=== PATIENT | female | born 1950 | race Caucasian/White ===

== ENCOUNTER → 2017-08-10 09:01 | Outpatient (CLI) | payer MEDICARE, OTHER, SELFPAY ==
--- NOTE | 2017-08-10 09:05 | RAD_ITS ---
STUDY: X-RAY - LEFT KNEE REASON FOR EXAM: Female, 67 years old. Knee pain. TECHNIQUE: 4 view(s) of the knee. COMPARISON: None. FINDINGS: Normal visualized distal femur. Normal visualized proximal tibia and fibula. Normal proximal tibiofibular articulation. There is mild degenerative arthrosis of the medial femorotibial compartment. Normal lateral femorotibial compartment. Normal patellofemoral articulation. Tiny joint effusion. RAD/Knee 4 or More Views IMPRESSION: Degenerative arthrosis. Tiny joint effusion. Electronically Signed: López Bhatti MD at 15:34 EDT Tel [phone], Service support ,
== END ==
PROVIDERS: Family Provider Family Medicine; PCP Family Medicine; Visit Provider Orthopaedic Surgery
DX: M25.562 Pain in left knee (principal)
CPT/HCPCS: 73564

== ENCOUNTER 2017-10-04 08:30 | Outpatient (RCR) | payer MEDICARE, OTHER, SELFPAY ==
--- NOTE | 2017-09-13 17:05 | HP.PTEVAL_ITS ---
Patient's Visit Information MADELINE BUCKLEY is a 67 year old F referred to Physical Therapy by Luc Lantigua DO with a diagnosis of L knee PF Pain. Date of Evaluation: 09/13/17 Physical Therapist: Claire Mehta - Visit Plan Frequency: 2x /Week Duration: 6 Weeks Plan: 2X/ week for 4-6 weeks for L knee AROM, PROM, decrease in swelling via movement and modalities, L hip and knee strength, gait training, stretching with HEP and modalities PRN - Subjective Subjective: Pt reports that Her L knee is bothering her. The cortizone shot that Dr Lantigua gave her did nothing. She walks a lot at the [employer]. She thinks that she overdid it. She wears tennis shoes most of the time and has orthotics. In Feb she had surgery on L knee due to a fall down on the L knee. 2 weeks after the fall she got up i the morning and her knee was swollen and red and she got to the Dr the next day and she thought the knee was infected and was on antibiotic and by the next Tuesday they called her to get an IV antibiotic due to MRSA staff infection and cut her knee open and drained it and waited 24 hours and they took the bursea out. Pt felt great after the surgery so not sure it is related to this knee injurty. She had an x-ray with a little bit of arthritis but not much. Stairs: She has to descend one step at a time. IF she goes up stairs she can reciprically go up stairs. She can not go down to the floor to get stuff off the floor. People are saying she is limping. She ices it everyday. She wears a brace on her knee with 2 velcro straps. If she lyes on R side she is ok or if she lays on back with pillow under her knee. Pain seems to be worse on the medial side o fthe L knee. - Pain L knee pain Pain Intensity (Out of 10): 7 - Objective Gait: walks with decreased stance time on the L, WBOS, walks with decrease L knee extension. LE MMT: B hip flex 4/5, L knee ext 4-/5 and R 4/5, B knee flex 4/5, B hip abd 4/5. L knee AROM -2 degrees from full extension and 77 degrees L knee flexion. R knee AROM 0 degrees to 122 degrees L knee flexion. After 10 heel slides pt was able to get knee to 100 degrees L knee flexion. Tender along the medial side of the patella on the L knee. B tightness in gastroc present - Goals Goal 1:: I HEP Goal Time Frame: 4-6 Weeks Goal 2:: Increase L knee AROM 0-120 degrees flexion Goal Time Frame: 4-6 Weeks Goal 3:: Be able to walk with increased L knee extension and increased stance time on the L knee Goal Time Frame: 4-6 Weeks Goal 4:: Increase L knee ext strength to 4/5 Goal Time Frame: 4-6 Weeks - Rehabilitation Potential Rehabilitation Potential: Good - Anticipated Interventions Patient/Client Instruction: Educate patient on: Condition, Plan of Care For the Purpose of:: To decrease pain, To decrease swelling/inflammation, To increase ROM, To improve nutrient delivery to tissue, To improve muscle performance and motor function, To improve ability to perform ADL's, To increase tolerance to activity/condition/position, To improve performance and independence with ADL's, To improve ability of physical actions for home/ community/work/leisure, To improve gait and locomotor functions, To improve health of tissue, To decrease soft tissue restriction, To increase flexibility/ ROM Therapeutic Exercise to Include: Strength training, Balance training, Flexibilty training, Gait and locomotor training, Passive ROM, Active ROM For the Purpose of:: To decrease pain, To decrease swelling/inflammation, To increase ROM, To improve nutrient delivery to tissue, To improve muscle performance and motor function, To improve ability to perform ADL's, To increase tolerance to activity/condition/position, To improve gait and locomotor functions, To improve health of tissue, To decrease soft tissue restriction, To increase flexibility/ROM Functional Training to Include: Gait training For the Purpose of:: To improve gait and locomotor functions, To improve safety with gait IF ES: Yes Cryotherapy (ice pack, ice massage): Yes Ultrasound (thermal/non thermal): Yes For the Purpose of:: To decrease pain, To decrease swelling/inflammation, To increase ROM, To improve nutrient delivery to tissue Thank you for the opportunity to evaluate your patient. For Medicare and Medicare HMO plans, please review the plan of care and approve it. It will need to be FAXED BACK to us at [phone] for Medicare purposes. Please let me know if there are questions or concerns regarding this plan of care. Physician Signature: Date:
--- NOTE | 2017-10-04 08:59 | HP.PTDCSUM ---
HP - PT D/C Summary It has been my pleasure to treat MADELINE BUCKLEY under orders from Luc Lantigua DO, for the diagnosis of L knee PF Pain for a total of 7 visit(s). Discharge Date: 10/04/17 Please see the following information for a summary of their discharge status. - Subjective Subjective: Pt reports that she is no better. She reports that she can function with tylenol but that is irritating her stomach. - Pain L knee pain Pain Intensity (Out of 10): 5 - Overall Improvement % Improvement: 20 - Objective Objective/Function: L knee AROM -1 degree to 100 degrees L knee flexion. L knee strength: L knee flex 4/5 and L knee ext 4/5. gait: Walks with increase wobble, decreased stance time on the L, def antalgic gait. - Goals Goal 1:: I HEP Goal Progress: Goal Met Goal 2:: Increase L knee AROM 0-120 degrees flexion Goal Progress: Progressing Goal 3:: Be able to walk with increased L knee extension and increased stance time on the L knee Goal Progress: Not Progressing Goal 4:: Increase L knee ext strength to 4/5 Goal Progress: Goal Met - Plan Plan: DC PT to be re-evaluated by Dr. Lanitgua - D/C Information Discharge Comments: DC PT back to Dr Lantigua for physician resassessment. If there are questions or concerns regarding this patient's physical therapy, please feel free to call me at [phone]. Thank you for the referral of this patient. Sincerely, Claire Mehta
== END 2017-10-04 19:00 | disposition home or self-care (01) ==
LOC: PT 08:30
PROVIDERS: Family Provider Family Medicine; PCP Family Medicine; Visit Provider Orthopaedic Surgery
DX: M22.2X2 Patellofemoral disorders, left knee (principal)
CPT/HCPCS: 97014; 97035; 97110; 97161; 97530; G0283

== ENCOUNTER → 2017-10-13 12:04 | Outpatient (CLI) | payer MEDICARE, OTHER, SELFPAY ==
--- NOTE | 2017-10-13 12:07 | MRI_ITS ---
STUDY: MRI LEFT KNEE REASON FOR EXAM: Left knee pain for 4 months, infected bursa removed last February. TECHNIQUE: Standardized fat and water weighted pulse sequences were obtained in all 3 orthogonal planes. COMPARISON: Radiographs 08/10/2017. FINDINGS: There is tear/degeneration of the posterior horn and posterior body of the medial meniscus (proton-density sagittal images 30-32; proton density coronal images 16, 17). There is peripheral subluxation of the medial meniscus. There is arthrosis of the medial femorotibial compartment with partial-thickness chondral loss (T2 sagittal image 16). There is a subchondral stress fracture of the medial tibial plateau (T2 coronal images 14-19) with bone edema extending across the midline into the lateral tibial plateau. There is mild periligamentous inflammation of the medial collateral ligament (T2 coronal image 17). Normal distal semimembranosus, gracilis and semitendinosus tendons. Normal lateral meniscus. Normal hyaline cartilage of the lateral femorotibial compartment. Normal proximal tibiofibular articulation. Normal lateral collateral (fibular) ligament. Normal popliteus tendon. Normal biceps femoris tendon. Normal anterior cruciate ligament (ACL). Normal posterior cruciate ligament (PCL). There is lateral subluxation of the patella (T2 axial image 14). There is intermediate grade chondromalacia of the medial patellar facet (T2 axial image 12). Normal medial and lateral patellar retinaculum. Normal quadriceps tendon. Normal patellar tendon. Normal Hoffa's fat pad. There is a fweuo-hn-kconfooc sized joint effusion. There is a thin medial patellar plica. There is mild edema in the anterior subcutis adipose space. The otherwise visualized osseous structures are unremarkable. MRI/Lower Ext Joint Only (Routine) IMPRESSION: Tear/degeneration of the medial meniscus. Subchondral stress fracture of the medial tibial plateau. Arthrosis of the medial femorotibial compartment. Chondromalacia patellae. Mild periligamentous inflammation of the medial collateral ligament. Lateral subluxation of the patella. Joint effusion. Electronically Signed: Mani Carcamo MD at 13:31 EDT Tel , Service support ,
== END ==
PROVIDERS: Family Provider Family Medicine; PCP Family Medicine; Visit Provider Orthopaedic Surgery
DX: M23.92 Unspecified internal derangement of left knee (principal)
CPT/HCPCS: 73721

== ENCOUNTER → 2017-11-24 09:33 | Outpatient (CLI) | payer MEDICARE, OTHER, SELFPAY ==
[2017-11-24 10:09] LABS: RBC /Synovial Fluid 0.028 10^6/uL (0); Synovial Fld Mononuclear WBC % 81.3 %; Synovial Fld Polynuclear WBC # 0.068 10^3/ul; Synovial Fld Polynuclear WBC % 18.7 %
[2017-11-24 14:27] LABS: Lymph 28 %; Monocyte /Synovial Fluid 25 %; Neutrophil 19 % (0-25); Other Cell /Synovial Fluid 28 %
[2017-11-24 14:28] LABS: AUTO B FLUID DILUENT BKGD CT WBC <0.1 RBC <0.01 (W<.1,R<.01)
[2017-11-24 14:29] LABS: Appearance /Synovial Fluid Cloudy (CLEAR); Color / Synovial Fluid Red (Pale Yellow); Source / Synovial Fluid LEFT KNEE
[2017-11-24 14:30] LABS: Body Fluid QC Type(s) BFQ2; Synovial Fld Mononuclear WBC # 0.295 10^3/ul
[2017-11-28 14:20] LABS: Pathologist Comment Reviewed
== END ==
PROVIDERS: Family Provider Family Medicine; PCP Family Medicine; Visit Provider Specialist
DX: M25.462 Effusion, left knee (principal)
CPT/HCPCS: 87015; 87070; 87075; 87101; 87116; 87205; 87206; 89050; 89051

== ENCOUNTER → 2017-11-30 08:36 | Outpatient (CLI) | payer MEDICARE, OTHER, SELFPAY ==
[2017-11-30 10:23] LABS: Glucose 107 mg/dL (74-106)
== END ==
PROVIDERS: Family Provider Family Medicine; PCP Family Medicine; Visit Provider Physician Assistant
DX: L92.0 Granuloma annulare (principal); L82.1 Other seborrheic keratosis; L81.4 Other melanin hyperpigmentation; D18.01 Hemangioma of skin and subcutaneous tissue; D22.5 Melanocytic nevi of trunk; D48.5 Neoplasm of uncertain behavior of skin; L80 Vitiligo; L90.5 Scar conditions and fibrosis of skin; R23.3 Spontaneous ecchymoses; L60.3 Nail dystrophy; L40.0 Psoriasis vulgaris; L65.9 Nonscarring hair loss, unspecified; Z71.89 Other specified counseling
CPT/HCPCS: 36415; 82947

== ENCOUNTER 2017-12-20 13:02 | Observation (INO) | payer MEDICARE, OTHER, SELFPAY ==
[2017-12-02 13:23] VITALS: BP 135/70; PULSE 76; RESP 17; TEMP 36.6; O2SAT 98; BMI 36.8
--- NOTE | 2017-12-02 13:54 | SDCEKG_ITS ---
Test Reason : Blood Pressure : / mmHG Vent. Rate : 074 BPM Atrial Rate : 074 BPM P-R Int : 176 ms QRS Dur : 090 ms QT Int : 404 ms P-R-T Axes : 036 -33 014 degrees QTc Int : 448 ms Normal sinus rhythm Left axis deviation Minimal voltage criteria for LVH, may be normal variant Abnormal ECG Confirmed by JAD LOPEZ, CRISPIN ([id number]), general expeditor MELITON LOO ([id number]) on 12/06/2017 2:58:24 PM Referred By: Jeremías Braden Confirmed By:CRISPIN STREET MD
[2017-12-02 14:24] LABS: Absolute Lymphocyte Count 2.02 X10^3/ul (0.83-4.51); Absolute Neutrophil Count 2.9 X10^3/uL (2.0-7.7); Basophil# 0.02 X10^3/uL; Basophil% 0.4 % (0-1); Eosinophil# 0.12 X10^3/uL; Eosinophils% 2.1 % (0-5); Hematocrit 39.4 % (37-47); Hemoglobin 13.1 g/dl (12.0-15.0); Lymphocyte # 2.02 X10^3/ul (4.0); Lymphocyte % 35.8 % (19-41); Mean Corp Hgb Conc 33.2 g/gl (32-36); Mean Corpuscular Volume 93.4 fL (81-99); Mean Platelet Vol. 8.3 fl (6.2-12.0); Monocyte# 0.59 X10^3/uL; Monocyte% 10.4 % (0-10); Neutrophil % 51.3 % (47-70); Platelet Count 232 K/mm3 (150-450); RBC Distribution Width CV 12.6 % (11.6-14.6); Red Blood Count 4.22 M/mm3 (4.2-5.4); White Blood Count 5.7 K/mm3 (4.4-11.0)
[2017-12-02 14:27] LABS: POSITIVE COUNT NO; POSITIVE DIFFERENTIAL NO; POSITIVE MORPHOLOGY NO
[2017-12-02 14:37] LABS: Anion Gap 7 (5-15); BUN 17 mg/dL (7-18); BUN/Creat Ratio 18.9 RATIO (10-20); Chloride 106 mmol/L (98-107); EST Glomerular Filtration Rate 67 mL/min (>60); Est Glom Filt Rate - Afr Amer 81 mL/min (>60); Estimated Creatinine Clearance 56.08 ml/min; Glucose 133 mg/dL (74-106); Potassium 4.1 mmol/L (3.5-5.1); Sodium Level 141 mmol/L (136-145)
--- NOTE | 2017-12-04 07:42 | HP.PCM_ITS ---
History and Physical DATE OF SURGERY: 12/20/2017 SCHEDULED PROCEDURE: Unicompartmental left knee arthroplasty HISTORY OF PRESENT ILLNESS: This is a 67-year-old female who has been having ongoing pain in the left knee. Patient states she fell in January 2017 on the left knee. She was treated for MRSA infection and had bursectomy in February [address] Lantigua. Patient had IV antibiotics in the hospital followed by oral antibiotics. Patient currently states her pain can reach as high as a 9 out of 10. Her pain is intermittent, aching, sharp, and sore. She has increased pain going up and down stairs, walking any amount of distance, and sitting for extended periods of time. She has difficult time with activities of daily living including getting dressed and housework. Patient has tripped and stumbled secondary to her knee pain. She feels unsafe going up and down stairs. Patient has tried rest, ice, heat with minimal relief in symptoms. She has tried corticosteroid injection, physical therapy, home exercises, and healthcare specialist with no relief in symptoms. She has tried oral medications consisting of Tylenol with minimal relief. Patient has been using a brace as well as orthotics with no relief in symptoms. Patient also has undergone an MRI of the left knee. After failing conservative measures and discussing all treatment options with Dr. Jeremías Braden, the patient would like to proceed with a left unicompartmental total knee arthroplasty. Patient currently denies any chest pain, shortness of breath, fevers chills. We are obtaining surgical clearance from patient's primary care physician. Patient has medical history pertinent for sleep apnea. REVIEW OF SYSTEMS: ROS: Const: Denies change in appetite, fever and weight change. CV: Denies chest pain, heart murmur and irregular heartbeat. Resp: Denies cough, pneumonia, shortness of breath, tuberculosis and wheezing. GI: Reports heartburn, but denies constipation, diarrhea, nausea, rectal itching , bloody stools and vomiting. : . (F Genital Sx) Denies incontinence. Musculo: Reports pain and trouble walking, but denies leg swelling and weakness. Skin: Denies Raynaud's, history of shingles and tattoo. Neuro: Denies ambulatory dysfunction, dizziness, numbness/tingling and tremor. Psych: Reports anxiety and stress, but denies insomnia. Milind/Lymph: Reports bleeding/bruising tendency, but denies anemia and past transfusion. Reviewed, no changes. PAST MEDICAL HISTORY: Advance Care Plan: Other Directive, POA Effective Date: 11/24/2017 Other Directive, LIVING WILL Effective Date: 11/24/2017 PMH: Medical Problems: Arthritis, Depression, Hypercholesterolemia, Psoriasis, Sleep Apnea, Mitral Valve Prolapse Accidents: None Surgical Hx: Appendectomy - (1968) [facility] Gallbladder - [facility] Hysterectomy - (1991) Tonsillectomy - (1956) Section - 1977, 1980 & 1985 Ovarian Cyst - (1968) LT Knee Bursa Sac Removed - (2016) RT Shoulder Arthroscopy LT Elbow Tendon Reposition - (2001) Anesthesia Complications: Nausea, Vomiting Assistive Devices: Glasses, Brace Reviewed and updated. SOCIAL HISTORY: SH: Marital: .Occupation: [employer].Work Status: Currently Working.Hand Dominance: Right-handed. Personal Habits: Cigarette Use: Never Smoked Cigarettes.Alcohol: Denies use.Drug Use: Denies Use.Enjoy Exercising: Daily. Reviewed, no changes. VITALS: Ht: 65.5 Wt: 223lb Wt k.153 BMI: 36.5 BP: 131/84 Pulse: 79 Resp: 18 T: 98.5 T: 36.9C ALLERGIES: Penicillin Macrobid Ativan MEDICATIONS: Aspir-81 81 mg 1 tab PO daily, Wellbutrin XL 300 mg 1po qday, Meloxicam 15 mg 1 by mouth every day, Nexium 20 mg 1po qday, Dicyclomine HCL 10 mg 1 cap PO bid, Skelaxin 800 mg 1 tab PO bid, Zebeta 5 mg 1po qday, Detrol LA 4 mg 1po qday, Crestor 20 mg 1po qday, Clarinex 10 mg 1po qday, Flonase Allergy Relief 50 mcg/ Act 1 spray each nostril bid, Vistaril 25 mg 1po qday prn, Multivitamins 1po qday PRE-OP EXAM: General appearance:NORMAL Other: Eyes: Conjunctivae and lids: NORMAL Pupils: ERR Ears, Nose, Mouth, and Throat: NORMAL Other: Inspection of lips, teeth and gums: NORMAL Other: Neck: Examination of neck: no masses noted. Respiratory: Assessment of respiratory effort: NORMAL Other: Auscultation of lungs: clear to auscultation no wheezes, rhonchi or rales. Cardiovascular: Auscultation of heart: regular rate and rhythm, no murmurs, gallops or rubs. Exam of carotid arteries: NORMAL Other: Gastrointestinal: Exam of abdomen: soft, nontender, nondistended bowel sounds present. PHYSICAL EXAMINATION: Patient does walk with an antalgic gait. Patient has tenderness to palpation over the medial aspect of the left knee. Range of motion of left knee 3 of hyperextension to 120 of flexion. Patient does have pain with Mesha's examination. Previous incision is well-healed without signs of erythema or infection. Correctable varus alignment. Sensation intact to light touch. IMAGING STUDIES: 1. X-rays of bilateral knees reveal varus alignment and medial joint space narrowing, subchondral sclerosis, and osteophyte formation consistent with severe medial compartment osteoarthritis of the left knee 2. MRI shows varus alignment with medial joint space narrowing, subchondral sclerosis, osteophyte formation consistent with severe osteoarthritis and degenerative meniscal tearing IMPRESSION: 1. Painful right knee with osteoarthritis 2. Depression 3. Hypercholesterolemia 4. Psoriasis 5. Sleep apnea 6. Mitral valve prolapse PLAN: Dr. Braden did discuss and review with the patient all treatment options including surgical versus nonsurgical options. Patient does wish to proceed with the above-stated procedure. Potential risks, benefits, and complications of the procedure were discussed in detail including but not limited to , infection, nerve and blood vessel damage, persistent pain, numbness, tingling, paresthesias, blood clot, pulmonary embolism, and requirement for possible further surgery. The patient expressed full understanding and has no further questions for the doctor. Patient does agree to proceed with the above-stated procedure and has signed the surgery consent form. ___ I have re-examined the patient. There are no clinical changes since date of exam. ___ See progress notes for changes. ___ Dictated on admission Date: Time: Signature:
[2017-12-20] VITALS (9 sets, daily range): BP systolic 113–132; BP diastolic 38–73; PULSE 69–84; RESP 16–18; TEMP 36.1–36.7; O2SAT 93–100; BMI 36.8; BMI 37.1
--- NOTE | 2017-12-20 06:50 | RAD_ITS ---
STUDY: X-RAY - LEFT KNEE REASON FOR EXAM: Female, 67 years old. Status post medial hemiarthroplasty. TECHNIQUE: 2 view(s) of the knee. COMPARISON: Comparison is made with prior examination dated August 10, 2017. FINDINGS: The patient is status post medial hemiarthroplasty. There is good alignment. Postoperative soft tissue changes. RAD/Knee 1 or 2 Views IMPRESSION: Status post medial hemiarthroplasty with postoperative soft tissue changes. There is good alignment. Electronically Signed: López Bhatti MD at 11:16 EDT Tel [phone], Service support ,
[2017-12-20] MEDS: Celecoxib 200 MG Capsule 400 MG PO (07:14)
[2017-12-20] MEDS: oxyCODONE HCl Cr 10 MG Tablet PO (07:14)
[2017-12-20] MEDS: Acetaminophen 500 MG Tablet 1000 MG PO ×3 (07:15→21:56)
[2017-12-20] MEDS: Lactated Ringers 1,000 ML 999 ML IV ×2 (07:48→11:15)
--- NOTE | 2017-12-20 10:04 | PCM.OPRPT ---
Report of Operation Date of Procedure: 12/20/17 Pre-Operative Diagnosis: Left knee anterior medial osteoarthritis Post-Operative Diagnosis: Left knee anterior medial osteoarthritis Surgery/Procedure Performed:: Left knee medial unicompartmental knee replacement Description of Surgical Findings:: Stable knee with good patella tracking food counter worker: Vitaly Kang Type of Anesthesia:: Spinal Anesthesiologist: Alpesh Cevallos Special Medications: 600 mg clindamycin, 1 g TXA at incision, 1 g TXA closure, 10 mg Decadron, joint cocktail (5 mg Duramorph, 30 mL of 0.5% Ropivicaine, 1000 units of epinephrine, 30 mg of Toradol) Specimen's removed: Bony cuts Estimated Blood Loss (mL): 75 mL Fluids Replaced: 1 L crystalloid Description of Procedure: Implants used: 1. Biomet Sargent size M femur 2. Biomet Sargent size C tibia 3. Biomet Sargent 3 mm mobile-bearing polyethylene component Brief history operative indications: 67-year-old F with history of R knee anterior medial varus osteoarthritis with radiographic findings with loss of joint space, osteophyte formation and subchondral sclerosis. Failed conservative measures as mentioned in the H&P. Discussion of total knee arthroplasty as well as risk and benefits were discussed the patient including but not limited to blood loss, DVTs, PEs, neurovascular damage, general risk of anesthesia including loss of life, and stiffness or instability were discussed with patient. Patient demonstrated understanding and was able to sign informed consent. Procedure: On the date of procedure patient's R lower extremity was marked in the preoperative area. The patient was then taken back to the operating room where the patient was placed on the table in the supine position. All bony prominences were identified a well-padded. Anesthesia assumed control of the C-spine and airway and remained controlled throughout the remainder of the procedure. A tourniquet was placed on the R upper thigh and the leg was prepped in a sterile fashion. The surgeon then scrubbed at this time .Upon reentering the room R lower extremity was draped in a standard orthopedic fashion. A timeout was then called and everyone agreed upon the side, the site, the procedure to be performed, patient's identity and antibiotics given. Esmarch bandage was used to exsanguinate the extremity and the tourniquet was placed up to 250 mmHg with the knee in flexion. A midline skin incision was made and sharp dissection was taken down through skin subcutaneous tissue and fat. The standard medial parapatellar incision was made and the patella was subluxed medially. The standard minimal MCL release was done and a minimal fat pad for visualization. Next our attention was directed to the tibia. The M spoon was placed in the joint and the 4 mm G clamp was used as a spacer and the extra medullary tibial cutting guide was pinned into place. Once pinned into place the vertical cut was made first using the precipitating saw then the horizontal cut was made. The bone wafer was removed and used to size the tibial component at a size C. Our attention was then directed towards the femur where the entry reamer was used to enter the femoral canal. The intramedullary guide was placed and used to drill the lug holes for the distal femoral guide. We then placed the posterior condylar cutting guide was used to cut the posterior condyle. The 0 mm pin was put into place and we reamed to 0 mm. Trial components and neal were then used to measure the difference between the flexion and extension gaps. The difference was 2 mm. The corresponding pin was then put into place and the distal femoral bone was reamed. The excess bone was reamed and the trial components were again placed and the trial polyethylene was placed showing good balance in flexion and extension. Once we were happy with our components trial components were removed and the bone was repaired reaming the distal femur and using the toothbrush saw to slot the proximal tibia. Once the bone was adequately prepared the knee was scoped. Out normal saline and 40 mL of joint cocktail was injected in the posterior medial knee. The bone ends were appropriately dried and once the cement was ready the final components were cemented into place with the trial polyethylene and held at 20? flexion. Once the cement had adequately cured and all cement was removed and the final 3 millimeter polyethylene was put into place and the final knee showed is good patella tracking and well-balanced knee without overcorrection. It should be noted that throughout the procedure the MCL was protected during all bony cuts by my bankruptcy assistant. Once the final components were placed a the wound was copiously irrigated with 500 mL dilute Betadine solution followed by 1 L of normal saline solution and the periarticular injection was given. The wound was closed in a layer thakkar fashion using #1 vicryl interrupted sutures for the arthrotomy, 2-0 interrupted Vicryl suture for the subcuticular layer and joaquín for final skin closure. A sterile compressive dressing was then placed. The patient was then awakened from anesthesia, transferred to the [place] and transferred to the PACU for recovery. Post op plan DVT ppx: ASA 81mg BID for 4 weeks, thigh high compression stockings for 6 weeks Follow up: in office in 2 weeks for wound check PT: to start POD #0 at hospital, outpatient PT should be arranged. My physician bankruptcy assistant was a vital part of this case. He was important in appropriate retraction during the case, and protection of soft tissues during bony cuts. His intimate knowledge of the case and my steps aided in safe and expedient completion of the procedure as well as appropriate position of the leg during the case. He was also vital in assisting with closure under my direct supervision. Grafts/Implants Used: Biomet Sargent partial knee replacement - Complications NONE - Admit VTE Documentation VTE Present on Admission: No VTE Mechan Device Prophylaxis: SCD's, Thigh High COTY Hose VTE Pharm Prophylaxis ordered?: Yes
--- NOTE | 2017-12-20 10:09 | OP.PCM_ITS ---
Report of Operation Date of Procedure: 12/20/17 Pre-Operative Diagnosis: Left knee anterior medial osteoarthritis Post-Operative Diagnosis: Left knee anterior medial osteoarthritis Surgery/Procedure Performed:: Left knee medial unicompartmental knee replacement Description of Surgical Findings:: Stable knee with good patella tracking generator operator: Vitaly Kang Type of Anesthesia:: Spinal Anesthesiologist: Alpesh Cevallos Special Medications: 600 mg clindamycin, 1 g TXA at incision, 1 g TXA closure, 10 mg Decadron, joint cocktail (5 mg Duramorph, 30 mL of 0.5% Ropivicaine, 1000 units of epinephrine, 30 mg of Toradol) Specimen's removed: Bony cuts Estimated Blood Loss (mL): 75 mL Fluids Replaced: 1 L crystalloid Description of Procedure: Implants used: 1. Biomet Ayr size M femur 2. Biomet Ayr size C tibia 3. Biomet Ayr 3 mm mobile-bearing polyethylene component Brief history operative indications: 67-year-old F with history of R knee anterior medial varus osteoarthritis with radiographic findings with loss of joint space, osteophyte formation and subchondral sclerosis. Failed conservative measures as mentioned in the H&P. Discussion of total knee arthroplasty as well as risk and benefits were discussed the patient including but not limited to blood loss, DVTs, PEs, neurovascular damage, general risk of anesthesia including loss of life, and stiffness or instability were discussed with patient. Patient demonstrated understanding and was able to sign informed consent. Procedure: On the date of procedure patient's R lower extremity was marked in the preoperative area. The patient was then taken back to the operating room where the patient was placed on the table in the supine position. All bony prominences were identified a well-padded. Anesthesia assumed control of the C- spine and airway and remained controlled throughout the remainder of the procedure. A tourniquet was placed on the R upper thigh and the leg was prepped in a sterile fashion. The surgeon then scrubbed at this time .Upon reentering the room R lower extremity was draped in a standard orthopedic fashion. A timeout was then called and everyone agreed upon the side, the site, the procedure to be performed, patient's identity and antibiotics given. Esmarch bandage was used to exsanguinate the extremity and the tourniquet was placed up to 250 mmHg with the knee in flexion. A midline skin incision was made and sharp dissection was taken down through skin subcutaneous tissue and fat. The standard medial parapatellar incision was made and the patella was subluxed medially. The standard minimal MCL release was done and a minimal fat pad for visualization. Next our attention was directed to the tibia. The M spoon was placed in the joint and the 4 mm G clamp was used as a spacer and the extra medullary tibial cutting guide was pinned into place. Once pinned into place the vertical cut was made first using the precipitating saw then the horizontal cut was made. The bone wafer was removed and used to size the tibial component at a size C. Our attention was then directed towards the femur where the entry reamer was used to enter the femoral canal. The intramedullary guide was placed and used to drill the lug holes for the distal femoral guide. We then placed the posterior condylar cutting guide was used to cut the posterior condyle. The 0 mm pin was put into place and we reamed to 0 mm. Trial components and neal were then used to measure the difference between the flexion and extension gaps. The difference was 2 mm. The corresponding pin was then put into place and the distal femoral bone was reamed. The excess bone was reamed and the trial components were again placed and the trial polyethylene was placed showing good balance in flexion and extension. Once we were happy with our components trial components were removed and the bone was repaired reaming the distal femur and using the toothbrush saw to slot the proximal tibia. Once the bone was adequately prepared the knee was scoped. Out normal saline and 40 mL of joint cocktail was injected in the posterior medial knee. The bone ends were appropriately dried and once the cement was ready the final components were cemented into place with the trial polyethylene and held at 20? flexion. Once the cement had adequately cured and all cement was removed and the final 3 millimeter polyethylene was put into place and the final knee showed is good patella tracking and well-balanced knee without overcorrection. It should be noted that throughout the procedure the MCL was protected during all bony cuts by my pastoral assistant. Once the final components were placed a the wound was copiously irrigated with 500 mL dilute Betadine solution followed by 1 L of normal saline solution and the periarticular injection was given. The wound was closed in a layer thakkar fashion using #1 vicryl interrupted sutures for the arthrotomy, 2-0 interrupted Vicryl suture for the subcuticular layer and joaquín for final skin closure. A sterile compressive dressing was then placed. The patient was then awakened from anesthesia, transferred to the rmarshall and transferred to the PACU for recovery. Post op plan DVT ppx: ASA 81mg BID for 4 weeks, thigh high compression stockings for 6 weeks Follow up: in office in 2 weeks for wound check PT: to start POD #0 at hospital, outpatient PT should be arranged. My physician pastoral assistant was a vital part of this case. He was important in appropriate retraction during the case, and protection of soft tissues during bony cuts. His intimate knowledge of the case and my steps aided in safe and expedient completion of the procedure as well as appropriate position of the leg during the case. He was also vital in assisting with closure under my direct supervision. Grafts/Implants Used: Biomet Ayr partial knee replacement - Complications NONE - Admit VTE Documentation VTE Present on Admission: No VTE Mechan Device Prophylaxis: SCD's, Thigh High COTY Hose VTE Pharm Prophylaxis ordered?: Yes
[2017-12-20] MEDS: Lactated Ringers 1,000 ML 125 ML IV (12:17)
[2017-12-20] MEDS: Senna/Docusate Sodium 1 Tablet 2 TABLET PO ×2 (13:13→21:56)
[2017-12-20] MEDS: Famotidine 20 MG Tablet PO (13:13)
[2017-12-20] MEDS: Dicyclomine 10 MG Capsule PO ×2 (13:13→21:55)
[2017-12-20] MEDS: Fluticasone 0.05% 1 SPRAY NASAL.SRY NASAL ×2 (13:13→21:56)
[2017-12-20] MEDS: oxyCODONE 5 MG Tablet PO ×2 (14:29→20:33)
[2017-12-20] MEDS: Aspirin 81 MG TAB.CHEW PO (16:27)
[2017-12-20] MEDS: Loratadine 10 MG Tablet PO (21:55)
[2017-12-20] MEDS: Tolterodine Tartrate 4 MG CAP.SA PO (21:55)
[2017-12-20] MEDS: Atorvastatin Calcium 40 MG Tablet PO (21:56)
[2017-12-20] MEDS: Bisoprolol Fumarate 5 MG Tablet PO (21:57)
[2017-12-21] MEDS: oxyCODONE 5 MG Tablet PO ×4 (00:55→15:24)
[2017-12-21 02:55] VITALS: BP 111/44; PULSE 86; RESP 18; TEMP 36.4; O2SAT 95
[2017-12-21] MEDS: Acetaminophen 500 MG Tablet 1000 MG PO ×2 (05:41→15:13)
[2017-12-21 06:45] LABS: Hematocrit 36.4 % (37-47); Hemoglobin 12.2 g/dl (12.0-15.0); Mean Corp Hgb Conc 33.5 g/gl (32-36); Mean Corpuscular Hgb 31.4 pg (27.0-32.0); Mean Corpuscular Volume 93.6 fL (81-99); Mean Platelet Vol. 8.3 fl (6.2-12.0); Platelet Count 218 K/mm3 (150-450); RBC Distribution Width CV 12.7 % (11.6-14.6); Red Blood Count 3.89 M/mm3 (4.2-5.4); White Blood Count 12.8 K/mm3 (4.4-11.0)
[2017-12-21 06:54] LABS: Scan Indicated on CBC? Y/N NO
[2017-12-21 07:09] LABS: Anion Gap 9 (5-15); BUN 11 mg/dL (7-18); BUN/Creat Ratio 14.6 RATIO (10-20); Chloride 108 mmol/L (98-107); Creatinine, Serum 0.75 mg/dL (0.55-1.02); EST Glomerular Filtration Rate 82 mL/min (>60); Est Glom Filt Rate - Afr Amer 99 mL/min (>60); Estimated Creatinine Clearance 67.29 ml/min; Glucose 112 mg/dL (74-106); Potassium 4.3 mmol/L (3.5-5.1); Sodium Level 144 mmol/L (136-145)
--- NOTE | 2017-12-21 07:12 | PCM.PN.ORT ---
Subjective: Patient resting in bedside chair upon examination. Patient denies any CP, SOB, dizziness/lightheadedness, or N/V. No adverse overnight events. Pain is controlled on medications. Patient plans on going home when ready, possible today. Objective: VSS, Afebrile Patient able to PF/DF actively Dressing is C/D/I Sensation intact to saphenous, sural, superficial/deep peroneal, and tibial distribution bilateral Negative homans bilateral - Physical Exam General: Alert, Oriented x3, Cooperative, No apparent distress Vital Signs Temp Pulse Resp BP Pulse Ox 97.5 F L 86 18 111/44 L 95 12/21/17 02:55 12/21/17 02:55 12/21/17 02:55 12/21/17 02:55 12/21/17 02:55 Oxygen Delivery Method Room Air Weight: 102.3 kg Body Mass Index (BMI) 37.1 Intake and Output for Last 24 Hours 12/19/17 12/20/17 12/21/17 23:59 23:59 23:59 Intake Total 3950 / 3950 2640 / 2640 Balance 3950 / 3950 2640 / 2640 Laboratory Tests Past 24 Hrs 12/21/17 12/21/17 06:26 06:26 WBC 12.8 H RBC 3.89 L Hgb 12.2 Hct 36.4 L MCV 93.6 MCH 31.4 MCHC 33.5 RDW 12.7 RDW Differential 42.0 Plt Count 218 MPV 8.3 Sodium 144 Potassium 4.3 Chloride 108 H Carbon Dioxide 27.0 Anion Gap 9 BUN 11 Creatinine 0.75 Estim Creat Clear Calc 67.29 Est GFR (MDRD) Af Amer 99 Est GFR (MDRD) Non-Af 82 BUN/Creatinine Ratio 14.6 Glucose 112 H Calcium 9.0 Medical Necessity - Tobacco Use Smoking Status: Never smoker Assessment/Plan All Active Problems Dyslipidemia (Acute) Septic prepatellar bursitis of left knee (Acute) 1. s/p left medial unicompartmental knee replacement POD#1 2. Continue pain medications: tylenol and oxyir 3. DVT Prophylaxis: 81 mg aspirin BID for 4 weeks 4. PT/OT: WBAT 5. H & H: 12.2/36.4, asymptomatic 6. Leukocytosis: currently 12.8, afebrile. Patient did receive decadron intraoperatively 7. Encouraged Incentive spirometry 8. Disposition: plan will be for possible discharge home today if patient tolerates physical therapy and pain is controlled on medications. Prescriptions e-scribed to pharmacy. Patient will follow up per [facility] post-op instructions.
--- NOTE | 2017-12-21 07:21 | PCM.DC.TKR ---
Discharge Diet: No Restrictions Discharge Activity: May Not Drive May shower in (days): 1 - turn dressing away from water Ice area for (Minutes): 20 - every hour while awake. Weight Bearing Status: Weight bearing as tolerated Elevate: Operative Extremity Additional Activity Instructions:: Wear elastic stockings for 2 weeks after your surgery. Call your doctor if your incision/area has: Continuous Slow Oozing, Sudden Increased Bleeding, Increased Pain/ Swelling, Increased Redness, Foul Smelling Discharge Call your doctor if you observe: Fever of 101 or Higher, Coldness, Increased Pain, Numbness or Tingling, Change in Color, Calf discomfort, Uncontrolled pain Remove Dressing in (days):: 4 - okay to remove on 12/25/17 Additional Instructions: follow [facility] post-op instructions Allergies/Adverse Reactions: Allergies ampicillin Allergy (Verified 12/02/17 13:10) Hives nitrofurantoin [From Macrobid] Allergy (Verified 12/02/17 13:10) Rash Penicillins Allergy (Verified 12/02/17 13:10) Hives tree nut Allergy (Verified 12/02/17 13:10) Other sore in mouth after consumption lorazepam [From Ativan] Adverse Reaction (Verified 12/02/17 13:10) I sit and cry all the time Medications to take at Discharge Metaxalone [Skelaxin] 800 mg PO BID 02/25/17 bupropion HCl XL 300 mg 24 hr tablet, extended release 300 mg PO DAILY tab 08/10/17 esomeprazole magnesium 20 mg capsule,delayed release 20 mg PO DAILY cap 08/10/17 rosuvastatin 10 mg tablet 20 mg PO QHS 08/10/17 Bisoprolol Fumarate [Zebeta (Beta [place])] 5 mg PO QHS 12/02/17 Desloratadine [Clarinex] 10 mg PO DAILY 12/02/17 Dicyclomine HCl [Bentyl] 10 mg PO BID 12/02/17 Fluticasone 0.05% [Flonase Nasal [place]] 1 spray NASAL BID 12/02/17 Hydroxyzine Pamoate [Vistaril] 25 mg PO Q6H PRN PRN 12/02/17 Tolterodine Tartrate [Detrol LA] 4 mg PO QHS 12/02/17 Acetaminophen [Tylenol] 1,000 mg PO Q8 #90 tab 12/21/17 Aspirin [Aspirin, Baby] 81 mg PO BIDCM #60 tab.chew 12/21/17 Meloxicam [Mobic] 7.5 mg PO BID #30 tab 12/21/17 Oxycodone [Oxyir] 5 - 10 mg PO Q4H PRN PRN 6 Days #80 tablet 12/21/17 Senna/Docusate Sodium [Senokot-S] 2 tab PO BID #20 tab 12/21/17 The following prescriptions were given: Oxycodone [Oxyir] 5 - 10 mg PO Q4H PRN PRN 6 Days #80 tablet PRN Reason: Mod-Severe Pain (-03/01) Acetaminophen [Tylenol] 1,000 mg PO Q8 #90 tab Aspirin [Aspirin, Baby] 81 mg PO BIDCM #60 tab.chew Meloxicam [Mobic] 7.5 mg PO BID #30 tab Senna/Docusate Sodium [Senokot-S] 2 tab PO BID #20 tab Primary Care Physician: Rosendo Cox DO [Primary Care Provider] - Test Results: Test results from this visit will be discussed in further detail at your follow-up appointment, if applicable. Please Follow Up With: [facility] When: 12/23/17 @ 2:00 pm Please Follow Up With: Vitaly Kang PA-C When: 01/02/18 @ 2:00 pm
[2017-12-21] MEDS: Dicyclomine 10 MG Capsule PO (08:04)
[2017-12-21] MEDS: Senna/Docusate Sodium 1 Tablet 2 TABLET PO (08:04)
[2017-12-21] MEDS: Meloxicam 7.5 MG Tablet PO (08:04)
[2017-12-21] MEDS: Aspirin 81 MG TAB.CHEW PO (08:04)
[2017-12-21] MEDS: Pantoprazole Sodium 20 MG Tablet PO (08:04)
[2017-12-21] MEDS: Famotidine 20 MG Tablet PO (08:04)
[2017-12-21] MEDS: buPROPion (XL) 300 MG TABLET.XL PO (08:05)
[2017-12-21] MEDS: Fluticasone 0.05% 1 SPRAY NASAL.SRY NASAL (08:05)
[2017-12-21 08:55] VITALS: BP 119/59; PULSE 73; RESP 18; TEMP 36.4; O2SAT 98
--- NOTE | 2017-12-21 11:10 | CASEMGMT ---
RAJI GAYTAN NOTE: Intro role to RAJI GAYTAN. Pt resting in bed. Awake/alert. Pt reports she has the following @ home: shower chair/tub bench, raised toilet seat, and walker. Pt reports she would like to get a hip kit. . Pt stated [employer] is her preferred DME compnay. RAJI GAYTAN spoke with [employer] and they stated hip kits are not covered under insurance but that they could be purchased for approx $40 @ their store. Pt states she has arrangements for out-pt PT after discharge @ [facility]. Pt also reports her is able to drive her home from hospital and he can provide transportation to her out-pt PT appts. Pt denies any needs at this time. RAJI GAYTAN discussed BERG form with pt and pt signed form. Pt given original and copy placed in chart. CM to continue to follow pt and be available for any additional needs that may arise. KAREN ACKERMAN RN, CM
[2017-12-21 15:17] VITALS: BP 100/65; PULSE 71; RESP 18; TEMP 36.8; O2SAT 97
== END 2017-12-21 15:41 | disposition home or self-care (01) ==
LOC: MS3 12-21 06:36 → SDC 12-22 06:45
PROVIDERS: Admitting Provider Specialist; Family Provider Family Medicine; PCP Family Medicine; Visit Provider Specialist
PROC: (CPT 27446; principal; 2017-12-20 08:35)
DX: M17.12 Unilateral primary osteoarthritis, left knee (principal); F41.9 Anxiety disorder, unspecified; F32.9 Major depressive disorder, single episode, unspecified; E78.5 Hyperlipidemia, unspecified; Z86.14 Personal history of Methicillin resistant Staphylococcus aureus infection; G47.30 Sleep apnea, unspecified; L40.9 Psoriasis, unspecified; K21.9 Gastro-esophageal reflux disease without esophagitis; K58.9 Irritable bowel syndrome, unspecified; Z79.899 Other long term (current) drug therapy; Z79.82 Long term (current) use of aspirin
CPT/HCPCS: 27446; 64447; 36415; 73560; 80048; 85025; 85027; 87077; 87081; 93005; 96361; 96365; 96366; 96367; 97116; 97162; 97165; 97530; 97535; 97802; 99218; 99251; C1776; J7040; J7120; G0378; G0379; G0463; J2405

== ENCOUNTER → 2018-01-13 13:56 | Outpatient (CLI) | payer MEDICARE, OTHER, SELFPAY | PROVIDERS: Family Provider Family Medicine; PCP Family Medicine; Visit Provider Nurse Practitioner Women's Health | DX: Z12.31 Encounter for screening mammogram for malignant neoplasm of breast (principal) | CPT/HCPCS: 77063; 77067 ==

== ENCOUNTER → 2019-01-23 | Outpatient (CLI) | payer MEDICARE, OTHER, SELFPAY ==
--- NOTE | 2019-01-23 08:04 | BI_ITS ---
MAMMOGRAPHY - BILATERAL SCREENING REASON FOR EXAM: Female, 68 years old. Routine annual screening examination. PERTINENT HISTORY: Mother with breast cancer. TECHNIQUE: Digital bilateral breast angel (3D mammographic acquisition) in the CC and MLO projections. 2-D mediolateral oblique (MLO) and craniocaudad (CC) views of both breasts were obtained. CAD: Full Field Digital Mammography with Computer Added Detection was performed. COMPARISON: Comparison is made with prior study dated January 13, 2018 and January 26, 2017. FINDINGS: Breast Composition: The breasts are almost entirely fatty. There are no dominant masses or suspicious calcifications. Stable small benign-appearing bilateral axillary lymph nodes. No other significant abnormalities are identified. There has been no significant change since the prior study. BI/SCREEN MAMM (CAD) W/ANGEL BILAT IMPRESSION: Stable bilateral screening mammogram. Yearly follow-up mammogram recommended. (A) ASSESSMENT CATEGORY: BIRADS Category 2: Benign. A letter regarding these results will be sent to the patient by the facility within 30 days. Approximately 10% of breast cancers are not detected by mammography. A normal mammogram should not delay biopsy of a clinically suspicious abnormality. [id number] Electronically Signed: López Bhatti, at 10:04 EDT , Service support ,
== END | disposition home or self-care (01) ==
PROVIDERS: Family Provider Family Medicine; PCP Family Medicine; Referring Provider Nurse Practitioner Women's Health; Visit Provider Nurse Practitioner Women's Health
DX: Z12.31 Encounter for screening mammogram for malignant neoplasm of breast (principal)
CPT/HCPCS: 77063; 77067

== ENCOUNTER → 2019-07-17 | Outpatient (CLI) | payer MEDICARE, OTHER, SELFPAY ==
[2019-07-17 13:38] VITALS: BMI 36.2
--- NOTE | 2019-07-17 13:52 | RAD_ITS ---
STUDY: X-RAY - LEFT SHOULDER REASON FOR EXAM: Chronic pain. TECHNIQUE: 3 view(s) of the shoulder. COMPARISON: None. FINDINGS: Normal glenohumeral articulation. There is acromioclavicular arthrosis. Normal acromion. Normal humeral head and visualized proximal humerus. The soft tissue structures are unremarkable. Normal visualized pulmonary apex. RAD/Shoulder min 2 Views IMPRESSION: Acromioclavicular arthrosis. Electronically Signed: Mani Carcamo MD at 15:16 EST Tel , Service support ,
--- NOTE | 2019-07-17 14:22 | RAD_ITS ---
STUDY: X-RAY - LEFT HAND REASON FOR EXAM: Female, 69 years old. Chronic hand pain. TECHNIQUE: Three view(s) of the hand. COMPARISON: None. FINDINGS: Bones: Generalized osteopenia. Joints: Severe arthrosis of the radial and first CMC joint. Moderate arthrosis of the MCP and IP joints. Soft tissues: The soft tissues are unremarkable. Foreign body: None RAD/Hand Min 3 Views IMPRESSION: Osteopenia with osteoarthritic changes. No acute finding. Electronically Signed: Ozzie Butts MD at 13:19 EST , Service support ,
--- NOTE | 2019-07-17 14:22 | RAD_ITS ---
STUDY: X-RAY - RIGHT HAND REASON FOR EXAM: Female, 69 years old. Chronic hand pain. TECHNIQUE: Three view(s) of the hand. COMPARISON: None. FINDINGS: Bones: Generalized osteopenia. Joints: Severe arthrosis of the radiocarpal row and first CMC joint. Moderate arthrosis of the MCP and IP joints Soft tissues: The soft tissues are unremarkable. Foreign body: None RAD/Hand Min 3 Views IMPRESSION: Osteopenia with osteoarthritic changes. No acute finding. Electronically Signed: Ozzie Butts MD at 13:20 EST , Service support ,
== END | disposition home or self-care (01) ==
LOC: HPRAD 13:52
PROVIDERS: PCP Family Medicine; Referring Provider Orthopaedic Surgery; Visit Provider Orthopaedic Surgery
DX: M25.512 Pain in left shoulder (principal); M79.646 Pain in unspecified finger(s)
CPT/HCPCS: 73030; 73130

== ENCOUNTER → 2020-01-25 | Outpatient (CLI) | payer MEDICARE, OTHER, SELFPAY ==
[2020-01-25 10:41] VITALS: BMI 36.2
== END | disposition home or self-care (01) ==
LOC: LABSPEC 12:33
PROVIDERS: PCP Student in an Organized Health Care Education/Training Program; Referring Provider Nurse Practitioner Women's Health; Visit Provider Nurse Practitioner Women's Health
DX: L73.2 Hidradenitis suppurativa (principal)
CPT/HCPCS: 87070; 87205

== ENCOUNTER → 2020-02-05 | Outpatient (CLI) | payer MEDICARE, OTHER, SELFPAY ==
[2019-07-17 13:38] VITALS: BMI 36.2
[2020-01-25 10:41] VITALS: BMI 36.2
--- NOTE | 2020-02-05 07:05 | BI_ITS ---
MAMMOGRAPHY - BILATERAL SCREENING REASON FOR EXAM: Female, 69 years old. Routine annual screening examination. PERTINENT HISTORY: Sister with breast cancer. Mother with breast cancer. TECHNIQUE: Digital bilateral breast angel (3D mammographic acquisition) in the CC and MLO projections. 2-D mediolateral oblique (MLO) and craniocaudad (CC) views of both breasts were obtained. CAD: Full Field Digital Mammography with Computer Added Detection was performed. COMPARISON: Comparison is made with prior study dated 01/23/2019 and 01/13/2018. FINDINGS: Breast Composition: The breasts are almost entirely fatty. There are no dominant masses or suspicious calcifications. Stable small benign-appearing bilateral axillary lymph nodes. No other significant abnormalities are identified. There has been no significant change since the prior study. BI/SCREEN MAMM (CAD) W/ANGEL BILAT IMPRESSION: Stable bilateral screening mammogram. Yearly follow-up mammogram recommended. (A) ASSESSMENT CATEGORY: BIRADS Category 2: Benign. A letter regarding these results will be sent to the patient by the facility within 30 days. Approximately 10% of breast cancers are not detected by mammography. A normal mammogram should not delay biopsy of a clinically suspicious abnormality. [id number] Electronically Signed: López Bhatti, at 8:54 EDT , Service support ,
== END | disposition home or self-care (01) ==
LOC: OPBI 07:05
PROVIDERS: PCP Student in an Organized Health Care Education/Training Program; Referring Provider Nurse Practitioner Women's Health; Visit Provider Nurse Practitioner Women's Health
DX: Z12.31 Encounter for screening mammogram for malignant neoplasm of breast (principal)
CPT/HCPCS: 77063; 77067

== ENCOUNTER → 2021-02-05 07:34 | Outpatient (CLI) | payer MEDICARE, OTHER, SELFPAY ==
[2020-03-12 08:49] VITALS: BMI 35.3
--- NOTE | 2021-02-05 07:35 | BI_ITS ---
MAMMOGRAPHY - BILATERAL SCREENING REASON FOR EXAM: Female, 70 years old. Routine annual screening examination. PERTINENT HISTORY: Sister with breast cancer. Mother with breast cancer. TECHNIQUE: Digital bilateral breast angel (3D mammographic acquisition) in the CC and MLO projections. 2-D mediolateral oblique (MLO) and craniocaudad (CC) views of both breasts were obtained. CAD: Full Field Digital Mammography with Computer Added Detection was performed. COMPARISON: Comparison is made with prior examination of 02/05/2020 and 01/23/2019. FINDINGS: Breast Composition: The breasts are almost entirely fatty. There are no dominant masses or suspicious calcifications. Stable small benign appearing bilateral axillary lymph nodes. No other significant abnormalities are identified. There has been no significant change since the prior study. BI/SCRN MAMM (CAD)W/ANGEL BILAT IMPRESSION: Stable bilateral screening mammogram. Yearly follow-up mammogram recommended. (A) ASSESSMENT CATEGORY: BIRADS Category 2: Benign. A letter regarding these results will be sent to the patient by the facility within 30 days. Approximately 10% of breast cancers are not detected by mammography. A normal mammogram should not delay biopsy of a clinically suspicious abnormality. [id number] Electronically Signed: López Bhatti MD at 8:38 EDT , Service support ,
== END ==
PROVIDERS: PCP Student in an Organized Health Care Education/Training Program; Referring Provider Nurse Practitioner Women's Health; Visit Provider Nurse Practitioner Women's Health
DX: Z12.31 Encounter for screening mammogram for malignant neoplasm of breast (principal)
CPT/HCPCS: 77063; 77067

== ENCOUNTER → 2022-02-08 | Outpatient (CLI) | payer MEDICARE, OTHER, SELFPAY ==
--- NOTE | 2022-02-08 07:25 | BI_ITS ---
MAMMOGRAPHY - BILATERAL SCREENING 3-D TOMOSYNTHESIS REASON FOR EXAM: Female, 71 years old. breast cancer screening PERTINENT HISTORY: No significant family history. TECHNIQUE: 2-D mammograms and 3-D Tomosynthesis of the breast (s) were performed. CAD was performed. COMPARISON: 02/05/2021 FINDINGS: The breast composition is composed of scattered fibroglandular density. Scattered benign calcifications are seen. No dense spiculated masses or suspicious microcalcifications are identified. No architectural distortion is identified. There is no skin thickening or retraction. There has been no significant change since the prior study. BI/SCRN MAMM (CAD)W/ANGEL BILAT IMPRESSION: No mammographic signs of malignancy. Routine yearly mammograms recommended. ASSESSMENT CATEGORY: BIRADS Category 1: Negative. A letter regarding these results will be sent to the patient by the facility within 30 days. FOLLOW UP RECOMMENDATION: Yearly follow up mammogram recommended. (A) Approximately 10% of breast cancers are not detected by mammography. A normal mammogram should not delay biopsy of a clinically suspicious abnormality. Electronically Signed: Cristobal Almazan MD at 8:11 EDT ,
== END | disposition home or self-care (01) ==
LOC: OPBI 07:23
PROVIDERS: PCP Student in an Organized Health Care Education/Training Program; Visit Provider Nurse Practitioner Women's Health
DX: Z12.31 Encounter for screening mammogram for malignant neoplasm of breast (principal)
CPT/HCPCS: 77063; 77067

== ENCOUNTER → 2022-07-20 | Outpatient (CLI) | payer MEDICARE, OTHER, SELFPAY | END | disposition home or self-care (01) | LOC: LABSPEC 12:11 | PROVIDERS: PCP Student in an Organized Health Care Education/Training Program; Visit Provider Dermatology | DX: T81.40XA Infection following a procedure, unspecified, initial encounter (principal) | CPT/HCPCS: 87070; 87077; 87186; 87205 ==

== ENCOUNTER → 2022-11-02 | Outpatient (CLI) | payer MEDICARE, OTHER, SELFPAY ==
--- NOTE | 2022-11-02 12:30 | CT_ITS ---
STUDY: CT SOFT TISSUE NECK WITH CONTRAST REASON FOR EXAM: Female, 72 years old. RT NECK CYST, PARTIAL REMOVAL. MARKED WITH BB -- R/O BRACHIAL CLEFT CYST RADIATION DOSAGE (If Supplied By Facility): CTDIvol = ( 14.64 ) mGy, DLP = ( 468.14 ) mGycm TECHNIQUE: The patient was scanned in a multi-detector CT scanner. High resolution transaxial imaging was performed following intravenous administration of 75 ML ISOVUE 300. Sagittal and coronal images were reconstructed. Individualized dose optimization techniques were used for this CT. COMPARISON: None. FINDINGS: Atherosclerotic plaque formation of the aortic arch. Normal bilateral parotid glands. Normal bilateral lead material handler spaces. Normal bilateral parapharyngeal spaces. Normal bilateral carotid spaces. Normal bilateral sublingual and submandibular glands and spaces. Normal visualized nasopharynx. Normal retropharyngeal space. Normal perivertebral space. Normal visualized bilateral faucial tonsils. The visualized tongue, tongue base and oropharynx are normal. The visualized cervical lymph nodes (levels I-) are within normal size limits, and maintain normal morphology. There is no demonstrated solid or cystic mass lesion. There is no abnormal contrast enhancement. Normal epiglottis, bilateral vallecula and hypopharynx. The pre-epiglottic and paraglottic adipose spaces are normal. Normal visualized bilateral piriform sinuses, aryepiglottic folds, vocal cords, and arytenoid-cricoid articulations. Normal subglottic trachea. There is a 5.3 mm x 7.4 mm partially calcified nodule in the lower pole of the left lobe of the thyroid adjacent to the isthmus. Normal visualized pulmonary apices. Normal visualized paranasal sinuses. There is multilevel degenerative changes of the cervical spine. CT/Soft Tissue Neck WITH Contrast IMPRESSION: No evidence of a brachial cleft cyst. Electronically Signed: López Bhatti MD at 13:50 EDT ,
[2022-11-02 13:05] LABS: CREATININE FINGERSTICK < 0.9 mg/dL (0.55-1.02); EGFR FINGERSTICK > 60.0000 mL/min (>60)
== END | disposition home or self-care (01) ==
LOC: CT 12:27
PROVIDERS: PCP Student in an Organized Health Care Education/Training Program; Referring Provider Otolaryngology; Visit Provider Otolaryngology
DX: R22.1 Localized swelling, mass and lump, neck (principal)
CPT/HCPCS: 70491; Q9967

== ENCOUNTER → 2023-02-14 | Outpatient (CLI) | payer MEDICARE, OTHER, SELFPAY ==
--- NOTE | 2023-02-14 12:20 | MASS_PTH ---
PATIENT: MADELINE BUCKLEY LOC: [facility] U#:[id number] AGE/SX: 72/F ROOM: RE02/14/[address]: Dr. Guilherme Hardwick MD : 1950 BED: DIS: 02/14/2023 SPEC #: [id number] RECD: 02/14/23 15:13 STATUS: CHEN REVadim #: [id number] KUSH: 02/14/23 12:[address]: Guilherme Hardwick DEPT: SURGICAL PATHOLOGY RECD BY: Odessa Oden ENTERED: 02/15/23 07:59 SP TYPE: Mass OTHR DR: Dr. Luc Nair, [facility] Tissues: Neck, NOS Procedures: Surgery Specimen Level IV HEADER OPERATION: Right excision neck mass PRE-OP DIAGNOSIS: Localized swelling, mass and lump, neck TISSUE SUBMITTED: Right neck mass (skin) MICROSCOPIC DIAGNOSIS Skin lesion of right neck, biopsy: Epidermal inclusion cyst. AM:damien 02/16/2023 COMMENT Case has been reviewed in consultation with Dr. Fernandez who concurs with the above diagnosis. IDC:SJ MICROSCOPIC DESCRIPTION Slides are reviewed. GROSS DESCRIPTION Received in fixative is one container labeled with the patient's name and designated right neck mass. The specimen consists of an irregular piece of carmona-white skin measuring 1.0 x 0.3 x 0.2 cm. The specimen is inked, serially sectioned and submitted entirely in one cassette. / ADONAY:damien 02/15/2023 TC:5 CPT: 77733
== END | disposition home or self-care (01) ==
LOC: LABSPEC 15:47
PROVIDERS: PCP Student in an Organized Health Care Education/Training Program; Referring Provider Otolaryngology; Visit Provider Otolaryngology
DX: L72.9 Follicular cyst of the skin and subcutaneous tissue, unspecified (principal)
CPT/HCPCS: 88305

== ENCOUNTER → 2023-02-21 | Outpatient (CLI) | payer MEDICARE, OTHER, SELFPAY ==
--- NOTE | 2023-02-21 07:57 | BI_ITS ---
MAMMOGRAPHY - BILATERAL SCREENING REASON FOR EXAM: Female, 72 years old. Routine annual screening examination. PERTINENT HISTORY: Sister with breast cancer. Mother with breast cancer. TECHNIQUE: Digital bilateral breast angel (3D mammographic acquisition) in the CC and MLO projections. 2-D mediolateral oblique (MLO) and craniocaudad (CC) views of both breasts were obtained. CAD: Full Field Digital Mammography with Computer Added Detection was performed. COMPARISON: Comparison is made with prior study dated February 08, 2022 and February 05, 2021. FINDINGS: Breast Composition: The breasts are almost entirely fatty. There are no dominant masses or suspicious calcifications. Stable small benign-appearing bilateral axillary lymph nodes. No other significant abnormalities are identified. There has been no significant change since the prior study. BI/SCRN MAMM (CAD)W/ANGEL BILAT IMPRESSION: Stable bilateral screening mammogram. Yearly follow-up mammogram recommended. (A) ASSESSMENT CATEGORY: BIRADS Category 2: Benign. A letter regarding these results will be sent to the patient by the facility within 30 days. Approximately 10% of breast cancers are not detected by mammography. A normal mammogram should not delay biopsy of a clinically suspicious abnormality. [id number] Electronically Signed: López Bhatti MD at 9:25 EDT ,
== END | disposition home or self-care (01) ==
LOC: OPBI 07:56
PROVIDERS: PCP Student in an Organized Health Care Education/Training Program; Referring Provider Nurse Practitioner Women's Health; Visit Provider Nurse Practitioner Women's Health
DX: Z12.31 Encounter for screening mammogram for malignant neoplasm of breast (principal); Z80.3 Family history of malignant neoplasm of breast
CPT/HCPCS: 77063; 77067

== ENCOUNTER → 2024-02-27 | Outpatient (CLI) | payer MEDICARE, OTHER, SELFPAY ==
--- NOTE | 2024-02-27 08:04 | BI_ITS ---
MAMMOGRAPHY - BILATERAL SCREENING REASON FOR EXAM: Female, 73 years old. Routine annual screening examination. PERTINENT HISTORY: Sister with breast cancer. Mother with breast cancer. TECHNIQUE: Digital bilateral breast angel (3D mammographic acquisition) in the CC and MLO projections. 2-D mediolateral oblique (MLO) and craniocaudad (CC) views of both breasts were obtained. CAD: Full Field Digital Mammography with Computer Added Detection was performed. COMPARISON: Comparison is made with prior study February 21, 2023 and February 08, 2022. FINDINGS: Breast Composition: The breasts are almost entirely fatty. There are no dominant masses or suspicious calcifications. No other significant abnormalities are identified. There has been no significant change since the prior study. BI/SCRN MAMM (CAD)W/ANGEL BILAT IMPRESSION: Stable bilateral screening mammogram. Yearly follow-up mammogram recommended. (A) ASSESSMENT CATEGORY: BIRADS Category 1: Negative. A letter regarding these results will be sent to the patient by the facility within 30 days. Approximately 10% of breast cancers are not detected by mammography. A normal mammogram should not delay biopsy of a clinically suspicious abnormality. [id number] Electronically Signed: López Bhatti MD at 9:27 EDT ,
== END | disposition home or self-care (01) ==
LOC: OPBI 08:02
PROVIDERS: PCP Student in an Organized Health Care Education/Training Program; Referring Provider Nurse Practitioner Women's Health; Visit Provider Nurse Practitioner Women's Health
DX: Z12.31 Encounter for screening mammogram for malignant neoplasm of breast (principal); Z80.3 Family history of malignant neoplasm of breast
CPT/HCPCS: 77063; 77067

== ENCOUNTER → 2025-02-27 | Outpatient (CLI) | payer MEDICARE, OTHER, SELFPAY ==
--- NOTE | 2025-02-27 07:15 | BI_ITS ---
EXAM: SCRN MAMM (CAD)W/ANGEL BILAT DATE: 02/27/2025 CLINICAL HISTORY: F, Age 74 y/o , SCREEN FOR BREAST CANCER Sister with breast cancer. Mother with breast cancer. TECHNIQUE: Procedure Code: [id number] Modality: MG Procedure: SCRN MAMM (CAD)W/ANGEL BILAT COMPARISON: Prior exam(s) dated February 27, 2024.. FINDINGS: TISSUE DENSITY: The breasts are almost entirely fatty. Bilateral Breast Mammographic Findings: No significant masses, calcifications or other abnormalities are identified. Stable fat containing bilateral axillary lymph nodes. No suspicious masses, areas of developing architectural distortion, or suspicious calcifications. There has been no significant interval change. BI/SCRN MAMM (CAD)W/ANGEL BILAT IMPRESSION: Stable bilateral screening mammogram. OVERALL FINAL ASSESSMENT BI-RADS 2: BENIGN RECOMMENDATION: Routine annual follow-up in 1 Year Additional Recommendation none A letter with findings and recommendations will be mailed to the patient. Reading Location: [facility]
== END | disposition home or self-care (01) ==
LOC: OPBI 07:07
PROVIDERS: PCP Student in an Organized Health Care Education/Training Program; Referring Provider Nurse Practitioner Women's Health; Visit Provider Nurse Practitioner Women's Health
DX: Z12.31 Encounter for screening mammogram for malignant neoplasm of breast (principal)
CPT/HCPCS: 77063; 77067